=== PATIENT | female | born 1990 | race Caucasian/White ===

== ENCOUNTER 2025-02-17 13:40 | Outpatient (CLI) | payer OTHER, SELFPAY ==
--- NOTE | 2025-02-17 14:00 | CRLHL7_ITS ---
For Patients: As a result of the Cures Act, medical imaging exams and procedure reports are released immediately into your electronic medical record. You may view this report before your referring provider. If you have questions, please contact your health care provider. OB ULTRASOUND INDICATION: Dating and viability. TECHNIQUE: Real time grayscale imaging of the fetus was performed. Transvaginal. Transvaginal imaging performed to better demonstrate the endometrium and ovaries. LMP: 12/07/2024. SHAAN by LMP: 09/13/2025. GA: 10 w, 2 d. Previous US: No. CRL: 4.2 cm. 11 w 0 d. SHAAN: 09/08/2025. FHR: 167 BPM. Gestational sac: 5.5 cm. Appears within normal limits. Yolk sac: 4.7 mm. Appears within normal limits. Placenta forming. Right ovary: N/V. Left ovary: 3.0 x 1.4 x 2.4 cm. CL. IMPRESSION: Single living intrauterine measures 11 weeks 0 days and sonographic due date 09/08/2025. Right superior subchorionic hemorrhage measures 1.8 x 2.5 x 1.2 cm. Ish Raya M.D. Diagnostic Radiologist [email or web address]/Dictated by: Ish Raya MD @ 02/17/2025 3:23:00 PM (Electronically Signed)
== END 2025-02-17 13:41 | disposition home or self-care (01) ==
LOC: US 13:43
PROVIDERS: Visit Provider Physician Assistant
DX: O26.891 Other specified pregnancy related conditions, first trimester (principal); Z3A.11 11 weeks gestation of pregnancy; Z12.4 Encounter for screening for malignant neoplasm of cervix
CPT/HCPCS: 76801

== ENCOUNTER 2025-02-17 14:53 | Outpatient (CLI) | payer OTHER, SELFPAY ==
[2025-02-20 06:29] LABS: HPV Source Cervix
[2025-02-24 09:37] LABS: Pap Test Digital Imaging Done
== END 2025-02-17 14:54 | disposition home or self-care (01) ==
PROVIDERS: Visit Provider Physician Assistant
DX: Z34.91 Encounter for supervision of normal pregnancy, unspecified, first trimester (principal); Z12.4 Encounter for screening for malignant neoplasm of cervix
CPT/HCPCS: 86703; 86704; 86706; 86762; 86780; 86787; 86803; 86850; 86900; 86901; 87086; 87340; 87624; 87625; 88141; 88142; 88175